=== PATIENT | female | born 1955 | race African-American/Black ===

== ENCOUNTER → 2017-06-20 | Outpatient (CLI) | payer BC | LOC: BRMIMAGING 12:56 | PROVIDERS: ATTEND Family Medicine | DX: Z12.31 Encounter for screening mammogram for malignant neoplasm of breast (principal) | CPT/HCPCS: G0202 ==

== ENCOUNTER → 2018-09-02 | Outpatient (CLI) | payer BC | LOC: BRMIMAGING 12:52 | PROVIDERS: ATTEND Family Medicine | DX: Z12.31 Encounter for screening mammogram for malignant neoplasm of breast (principal) ==

== ENCOUNTER → 2018-11-13 | Outpatient (CLI) | payer BC | LOC: BRMIMAGING 14:50 | PROVIDERS: ATTEND Family Medicine | DX: M54.5 Low back pain (principal); M16.0 Bilateral primary osteoarthritis of hip; M47.898 Other spondylosis, sacral and sacrococcygeal region | CPT/HCPCS: 73521-PO ==